=== PATIENT | female | born 1970 | race Two or more races ===

== ENCOUNTER 2018-08-16 13:05 | Inpatient (IN) | payer BC ==
[2018-08-16 13:08] VITALS: BMI 32.5
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
[2018-08-16] MEDS ORDERED: MAGNESIUM CITRATE 300 ML BOTTLE PO PRN (15:25)
[2018-08-16] MEDS ORDERED: chlordiazePOXIDE HCL 25 MG CAPSULE PO PRN (15:25)
[2018-08-16] MEDS ORDERED: IBUPROFEN 400 MG TABLET (FP) PO PRN (15:25)
[2018-08-16] MEDS ORDERED: MAGNESIUM HYDROX 2400MG/30ML ORAL SUSPENSION 30 ML CUP PO PRN (15:25)
[2018-08-16] MEDS ORDERED: hydrOXYzine PAMOATE 50 MG CAPSULE (FP) PO PRN (15:25)
[2018-08-16] MEDS ORDERED: ACETAMINOPHEN 325 MG TABLET (FP) PO PRN (15:25)
[2018-08-16] MEDS ORDERED: MAG HYDROX/AL HYDROX/SIMETH 30 ML UNIT-DOSE CUP PO PRN (15:25)
[2018-08-16] MEDS ORDERED: MENTHOL/PHENOL 1 EACH UD MM PRN (15:25)
[2018-08-16] MEDS ORDERED: guaiFENesin/D-METHORPHAN HB 10 ML UNIT-DOSE CUPS PO PRN (15:25)
[2018-08-16] MEDS ORDERED: P-EPHED 60MG/TRIPROLIDI 2.5MG TABLET PO PRN (15:25)
[2018-08-16] MEDS ORDERED: LOPERAMIDE HCL 2 MG CAPSULE PO PRN (15:25)
[2018-08-16] MEDS ORDERED: ALBUTEROL SO4 8 GM HFA INHALER IH PRN (15:30)
[2018-08-16] MEDS ORDERED: INSULIN (NOVOLOG) ASPART 100 UNITS/ML 10ML VIAL SQ SCH ×2 (17:15→22:39)
[2018-08-16] MEDS: chlordiazePOXIDE HCL 25 MG CAPSULE PO SCH ×2 (17:54→22:06)
[2018-08-16] MEDS: NICOTINE 21 MG/24 HOURS TOPICAL PATCH TD SCH (17:55)
[2018-08-16] MEDS: NICOTINE POLACRILEX 2 MG GUM BC PRN (21:28)
[2018-08-16] MEDS ORDERED: MELATONIN 5 MG TABLETS PO PRN (22:00)
[2018-08-16] MEDS ORDERED: INSULIN (LEVEMIR) 100 UNITS/ML UNITS SQ SCH (22:00)
[2018-08-16] MEDS: THIAMINE HCL 100 MG TABLET (FP) PO SCH (22:06)
[2018-08-16] MEDS: ATORVASTATIN CA 10 MG TABLET (FP) PO SCH (22:07)
[2018-08-16] MEDS: RALTEGRAVIR POTASSIUM 400 MG TAB PO SCH (22:07)
--- NOTE | 2018-08-16 22:42 | PN ---
S Progress Note Note: Patients BGM = 114 after coverage for earlier BGM of 257 w/ 15 units Novolog @ 1755. Levemir d/c until BGM patten can be evaluated. Parameters placed on standing Novolog orders.
[2018-08-17] MEDS: chlordiazePOXIDE HCL 25 MG CAPSULE PO SCH ×4 (05:10→22:20)
[2018-08-17] MEDS ORDERED: METHADONE HCL 10 MG TABLET PO SCH (06:00)
[2018-08-17] MEDS: INSULIN (NOVOLOG) ASPART 100 UNITS/ML 10ML VIAL SQ SCH ×3 (07:03→17:14)
[2018-08-17] MEDS ORDERED: INSULIN (NOVOLOG) ASPART 100 UNITS/ML 10ML VIAL ONE ×4 (07:03→17:16)
[2018-08-17] MEDS ORDERED: METHADONE HCL 10 MG TABLET PO ONE (09:36)
[2018-08-17] MEDS ORDERED: METHADONE HCL 5 MG TABLET ONE (09:59)
[2018-08-17] MEDS ORDERED: METHADONE HCL 40 MG DISPERSABLE TABLET ONE (09:59)
--- NOTE | 2018-08-17 09:59 | PN ---
S CIWA - CIWA Score Nausea/Vomitin-No Nausea/No Vomiting Muscle Tremors: 2 Anxiety: 2 Agitation: 1-Slight > Activity Paroxysmal Sweats: 3 Orientation: 0-Oriented Tacttile Disturbances: 0-None Auditory Disturbances: 0-None Visual Disturbances: 0-None Headache: 2-Mild CIWA-Ar Total Score: 10 BHS Progress Note (SOAP) Subjective: PATIENT C/O BODY ACHES, INTERRUPTED SLEEP, SWEATING, ANXIETY AND CHILLS. Objective: 08/17/18 09:58 Vital Signs Temperature 97.5 F L 08/17/18 09:24 Pulse Rate 53 L 08/17/18 09:24 Respiratory Rate 18 08/17/18 09:24 Blood Pressure 109/52 L 08/17/18 09:24 O2 Sat by Pulse Oximetry (%) Laboratory Tests 08/16/18 08/17/18 22:05 05:09 POC Glucometer 114 220 PE: ALERT AND ORIENTED X 3 SKIN WARM, +FACIAL MOISTURE EXT FULL ROM, MILD TREMORS FELT AMB AD CONSTANCE +ANXIETY Assessment: 08/17/18 09:58 WITHDRAWAL SX Plan: CONTINUE DETOX ENCOURAGE ORAL FLUIDS CONTINUE TO MONITOR LABS PENDING.
[2018-08-17] MEDS ORDERED: METHADONE HCL 10 MG TABLET ONE (10:00)
[2018-08-17] MEDS: NICOTINE 21 MG/24 HOURS TOPICAL PATCH TD SCH (10:05)
[2018-08-17] MEDS: EMTRICITABINE 200MG/TENOFOVIR 300MG PO SCH (10:09)
[2018-08-17] MEDS: PRENATAL VITAMINS W/ FOLIC ACID TABLET (FP) PO SCH (10:09)
[2018-08-17] MEDS: LISINOPRIL 10 MG TABLET (FP) PO SCH (10:09)
[2018-08-17] MEDS: RALTEGRAVIR POTASSIUM 400 MG TAB PO SCH ×2 (10:09→22:22)
[2018-08-17] MEDS: METHADONE PO SCH (10:10)
[2018-08-17 11:18] LABS: HEMATOCRIT 43.8 % (32.4-45.2); HEMOGLOBIN 14.4 GM/dL (10.7-15.3); MCH 30.5 pg (25.7-33.7); MCHC 32.8 g/dl (32.0-36.0); MEAN PLT VOLUME 10.3 fl (7.5-11.1); PLATELET COUNT 130 K/MM3 (134-434); RDW 13.6 % (11.6-15.6); WHITE BLOOD COUNT 4.1 K/mm3 (4.0-10.0)
[2018-08-17 11:24] LABS: URINE APPEARANCE CLEAR; URINE BILIRUBIN NEGATIVE (<2.0 mg/dL); URINE COLOR LTYELLOW; URINE GLUCOSE (UA) 3+ (NEGATIVE); URINE KETONE NEGATIVE (NEGATIVE); URINE LEUK ESTERASE 1+ (NEGATIVE); URINE NITRITE NEGATIVE (NEGATIVE); URINE PROTEIN NEGATIVE (NEGATIVE); URINE UROBILINOGEN NEGATIVE mg/dL (0.2-1.0)
[2018-08-17 11:29] LABS: EPI CELLS RARE /HPF (FEW); URINE MUCUS RARE
[2018-08-17 11:52] LABS: ALBUMIN 3.1 g/dl (3.4-5.0); ALK PHOS 127 U/L (45-117); ANION GAP 6 MMOL/L (8-16); BILIRUBIN,TOTAL 0.3 mg/dL (0.2-1); BLOOD UREA NITROGEN 14 mg/dL (7-18); CALCIUM 7.9 mg/dL (8.5-10.1); CHLORIDE 102 mmol/L (98-107); CHOLESTEROL 149 mg/dL (50-200); CO2 29 mmol/L (21-32); CREATININE 0.7 mg/dL (0.55-1.3); HDL CHOLESTEROL 39 mg/dL (40-60); POTASSIUM 3.9 mmol/L (3.5-5.1); SGOT/AST 27 U/L (15-37); SGPT/ALT 49 U/L (13-61); SODIUM 137 mmol/L (136-145); TOT PROT 6.1 g/dl (6.4-8.2); TRIGLYCERIDES 138 mg/dL (0-150)
[2018-08-17 13:07] LABS: GLUCOSE,RANDOM 307 mg/dL (74-106)
--- NOTE | 2018-08-17 13:29 | EKG ---
Test Reason : Blood Pressure : / mmHG Vent. Rate : 059 BPM Atrial Rate : 059 BPM P-R Int : 146 ms QRS Dur : 076 ms QT Int : 438 ms P-R-T Axes : 077 078 054 degrees QTc Int : 433 ms SINUS BRADYCARDIA OTHERWISE NORMAL ECG NO PREVIOUS ECGS AVAILABLE Confirmed by RUBIN MITTAL, YAMILETH ([id number]) on 08/17/2018 1:28:53 PM Referred By: Confirmed By:YAMILETH CONKLIN MD
[2018-08-17] MEDS: ATORVASTATIN CA 10 MG TABLET (FP) PO SCH (22:21)
[2018-08-17] MEDS: THIAMINE HCL 100 MG TABLET (FP) PO SCH (22:21)
[2018-08-18] MEDS ORDERED: METHADONE HCL 40 MG DISPERSABLE TABLET ONE (04:17)
[2018-08-18] MEDS ORDERED: METHADONE HCL 5 MG TABLET ONE (04:17)
[2018-08-18] MEDS ORDERED: METHADONE HCL 10 MG TABLET ONE (04:18)
[2018-08-18] MEDS: chlordiazePOXIDE HCL 25 MG CAPSULE PO SCH ×2 (05:10→10:17)
[2018-08-18] MEDS: METHADONE PO SCH (05:12)
[2018-08-18] MEDS ORDERED: METHADONE HCL 10 MG TABLET PO SCH (06:00)
[2018-08-18] MEDS ORDERED: INSULIN (NOVOLOG) ASPART 100 UNITS/ML 10ML VIAL ONE ×3 (06:07→17:08)
--- NOTE | 2018-08-18 10:11 | PN ---
[facility] CIWA - CIWA Score Nausea/Vomitin-No Nausea/No Vomiting Muscle Tremors: 3 Anxiety: 1-Mildly Anxious Agitation: 2 Paroxysmal Sweats: 1-Minimal Palms Moist Orientation: 0-Oriented Tacttile Disturbances: 0-None Auditory Disturbances: 0-None Visual Disturbances: 0-None Headache: 1-Very Mild CIWA-Ar Total Score: 8 S Progress Note (SOAP) Subjective: mild tremor otherwise feeling better discuss aftercare with staff Objective: 08/18/18 10:09 Vital Signs Temperature 97.7 F 08/18/18 09:25 Pulse Rate 67 08/18/18 09:25 Respiratory Rate 18 08/18/18 09:25 Blood Pressure 126/69 08/18/18 09:25 O2 Sat by Pulse Oximetry (%) Laboratory Last Values WBC 4.1 K/mm3 (4.0-10.0) 08/17/18 07:30 RBC 4.70 M/mm3 (3.60-5.2) 08/17/18 07:30 Hgb 14.4 GM/dL (10.7-15.3) 08/17/18 07:30 Hct 43.8 % (32.4-45.2) 08/17/18 07:30 MCV 93.0 fl (80-96) 08/17/18 07:30 MCH 30.5 pg (25.7-33.7) 08/17/18 07:30 MCHC 32.8 g/dl (32.0-36.0) 08/17/18 07:30 RDW 13.6 % (11.6-15.6) 08/17/18 07:30 Plt Count 130 K/MM3 (134-434) L 08/17/18 07:30 MPV 10.3 fl (7.5-11.1) 08/17/18 07:30 Sodium 137 mmol/L (136-145) 08/17/18 07:30 Potassium 3.9 mmol/L (3.5-5.1) 08/17/18 07:30 Chloride 102 mmol/L (98-107) 08/17/18 07:30 Carbon Dioxide 29 mmol/L (21-32) 08/17/18 07:30 Anion Gap 6 MMOL/L (8-16) L 08/17/18 07:30 BUN 14 mg/dL (7-18) 08/17/18 07:30 Creatinine 0.7 mg/dL (0.55-1.3) 08/17/18 07:30 Creat Clearance w eGFR > 60 (>60) 08/17/18 07:30 POC Glucometer 327 UNITS (80-120) 08/18/18 05:10 Random Glucose 307 mg/dL (74-106) H* 08/17/18 07:30 Calcium 7.9 mg/dL (8.5-10.1) L 08/17/18 07:30 Total Bilirubin 0.3 mg/dL (0.2-1) 08/17/18 07:30 AST 27 U/L (15-37) 08/17/18 07:30 ALT 49 U/L (13-61) 08/17/18 07:30 Alkaline Phosphatase 127 U/L (45-117) H 08/17/18 07:30 Total Protein 6.1 g/dl (6.4-8.2) L 08/17/18 07:30 Albumin 3.1 g/dl (3.4-5.0) L 08/17/18 07:30 Triglycerides 138 mg/dL (0-150) 08/17/18 07:30 Cholesterol 149 mg/dL (50-200) 08/17/18 07:30 Total LDL Cholesterol 90 mg/dL (5-100) 08/17/18 07:30 HDL Cholesterol 39 mg/dL (40-60) L 08/17/18 07:30 Urine Color Ltyellow 08/17/18 07:30 Urine Appearance Clear 08/17/18 07:30 Urine pH 6.0 (5.0-8.0) 08/17/18 07:30 Ur Specific [place] 1.010 (1.010-1.035) 08/17/18 07:30 Urine Protein Negative (NEGATIVE) 08/17/18 07:30 Urine Glucose (UA) 3+ (NEGATIVE) H 08/17/18 07:30 Urine Ketones Negative (NEGATIVE) 08/17/18 07:30 Urine Blood Negative (NEGATIVE) 08/17/18 07:30 Urine Nitrite Negative (NEGATIVE) 08/17/18 07:30 Urine Bilirubin Negative (<2.0 mg/dL) 08/17/18 07:30 Urine Urobilinogen Negative mg/dL (0.2-1.0) 08/17/18 07:30 Ur Leukocyte Esterase 1+ (NEGATIVE) H 08/17/18 07:30 Urine WBC (Auto) 6 /hpf (3-5) 08/17/18 07:30 Urine RBC (Auto) 1 /hpf (0-3) 08/17/18 07:30 Ur Epithelial Cells Rare /HPF (FEW) 08/17/18 07:30 Urine Mucus Rare 08/17/18 07:30 RPR Titer Nonreactive (NONREACTIVE) 08/17/18 07:30 lab noted denies burning frequency of urination Assessment: 08/18/18 10:10 withdrawal sx repeat ua Plan: continue detox increase oral fluid
[2018-08-18] MEDS: EMTRICITABINE 200MG/TENOFOVIR 300MG PO SCH (10:16)
[2018-08-18] MEDS: RALTEGRAVIR POTASSIUM 400 MG TAB PO SCH ×2 (10:16→22:16)
[2018-08-18] MEDS: PRENATAL VITAMINS W/ FOLIC ACID TABLET (FP) PO SCH (10:17)
[2018-08-18] MEDS: NICOTINE 21 MG/24 HOURS TOPICAL PATCH TD SCH (10:17)
[2018-08-18] MEDS: LISINOPRIL 10 MG TABLET (FP) PO SCH (10:17)
[2018-08-18] MEDS: INSULIN (NOVOLOG) ASPART 100 UNITS/ML 10ML VIAL SQ SCH ×3 (11:42→17:24)
[2018-08-18] MEDS: CALCIUM 250MG/VIT-D 125 UNITS 1 COMBO TABLET PO SCH ×2 (14:26→22:16)
[2018-08-18] MEDS: NICOTINE POLACRILEX 2 MG GUM BC PRN (14:44)
[2018-08-18] MEDS: chlordiazePOXIDE 5 MG CAPSULE PO SCH ×2 (17:06→22:16)
[2018-08-18] MEDS: THIAMINE HCL 100 MG TABLET (FP) PO SCH (22:15)
[2018-08-18] MEDS: ATORVASTATIN CA 10 MG TABLET (FP) PO SCH (22:16)
[2018-08-19] MEDS ORDERED: METHADONE HCL 40 MG DISPERSABLE TABLET ONE (05:11)
[2018-08-19] MEDS ORDERED: METHADONE HCL 5 MG TABLET ONE (05:11)
[2018-08-19] MEDS ORDERED: METHADONE HCL 10 MG TABLET ONE (05:12)
[2018-08-19] MEDS: chlordiazePOXIDE 5 MG CAPSULE PO SCH ×2 (05:48→10:20)
[2018-08-19] MEDS: METHADONE PO SCH (05:50)
[2018-08-19] MEDS: INSULIN (NOVOLOG) ASPART 100 UNITS/ML 10ML VIAL SQ SCH ×3 (08:12→16:54)
[2018-08-19] MEDS: EMTRICITABINE 200MG/TENOFOVIR 300MG PO SCH (10:20)
[2018-08-19] MEDS: PRENATAL VITAMINS W/ FOLIC ACID TABLET (FP) PO SCH (10:20)
[2018-08-19] MEDS: CALCIUM 250MG/VIT-D 125 UNITS 1 COMBO TABLET PO SCH ×2 (10:20→22:17)
[2018-08-19] MEDS: RALTEGRAVIR POTASSIUM 400 MG TAB PO SCH ×2 (10:20→22:17)
[2018-08-19] MEDS: LISINOPRIL 10 MG TABLET (FP) PO SCH (10:22)
[2018-08-19] MEDS: NICOTINE POLACRILEX 2 MG GUM BC PRN (10:24)
[2018-08-19] MEDS: NICOTINE 21 MG/24 HOURS TOPICAL PATCH TD SCH (10:24)
[2018-08-19] MEDS ORDERED: INSULIN (NOVOLOG) ASPART 100 UNITS/ML 10ML VIAL ONE ×2 (11:18→16:44)
[2018-08-19] MEDS: chlordiazePOXIDE HCL 10 MG CAPSULE PO SCH ×2 (17:41→22:17)
[2018-08-19] MEDS: THIAMINE HCL 100 MG TABLET (FP) PO SCH (22:17)
[2018-08-19] MEDS: ATORVASTATIN CA 10 MG TABLET (FP) PO SCH (22:17)
[2018-08-20] MEDS ORDERED: METHADONE HCL 5 MG TABLET ONE (05:22)
[2018-08-20] MEDS ORDERED: METHADONE HCL 10 MG TABLET ONE (05:23)
[2018-08-20] MEDS ORDERED: METHADONE HCL 40 MG DISPERSABLE TABLET ONE (05:23)
[2018-08-20] MEDS: METHADONE PO SCH (06:18)
[2018-08-20] MEDS: chlordiazePOXIDE HCL 10 MG CAPSULE PO SCH ×2 (06:18→10:07)
[2018-08-20] MEDS: INSULIN (NOVOLOG) ASPART 100 UNITS/ML 10ML VIAL SQ SCH ×4 (08:12→17:22)
[2018-08-20] MEDS: PRENATAL VITAMINS W/ FOLIC ACID TABLET (FP) PO SCH (10:05)
[2018-08-20] MEDS: RALTEGRAVIR POTASSIUM 400 MG TAB PO SCH ×2 (10:05→22:16)
[2018-08-20] MEDS: LISINOPRIL 10 MG TABLET (FP) PO SCH (10:05)
[2018-08-20] MEDS: EMTRICITABINE 200MG/TENOFOVIR 300MG PO SCH (10:05)
[2018-08-20] MEDS: NICOTINE 21 MG/24 HOURS TOPICAL PATCH TD SCH (10:05)
[2018-08-20] MEDS: CALCIUM 250MG/VIT-D 125 UNITS 1 COMBO TABLET PO SCH ×2 (10:05→22:16)
[2018-08-20] MEDS: NICOTINE POLACRILEX 2 MG GUM BC PRN (10:07)
--- NOTE | 2018-08-20 10:07 | PN ---
[facility] Progress Note Note: PATIENT COMPLETING DETOX TREATMENT TODAY. FOR D/C IN AM TO [facility]. PATIENT REPORTS HAVING INTERRUPTED SLEEP AND ETOH CRAVINGS. STATES " I NEED HALF-WAY TREATMENT BECAUSE IF NOT I WILL RELAPSE". Laboratory Tests 08/16/18 08/16/18 08/17/18 15:12 22:05 05:09 WBC RBC Hgb Hct MCV MCH MCHC RDW Plt Count MPV Sodium Potassium Chloride Carbon Dioxide Anion Gap BUN Creatinine Creat Clearance w eGFR POC Glucometer 257 114 220 Random Glucose Calcium Total Bilirubin AST ALT Alkaline Phosphatase Total Protein Albumin Triglycerides Cholesterol Total LDL Cholesterol HDL Cholesterol Urine Color Urine Appearance Urine pH Ur Specific [place] Urine Protein Urine Glucose (UA) Urine Ketones Urine Blood Urine Nitrite Urine Bilirubin Urine Urobilinogen Ur Leukocyte Esterase Urine WBC (Auto) Urine RBC (Auto) Ur Epithelial Cells Urine Mucus RPR Titer 08/17/18 08/17/18 08/17/18 07:30 07:30 07:30 WBC 4.1 RBC 4.70 Hgb 14.4 Hct 43.8 MCV 93.0 MCH 30.5 MCHC 32.8 RDW 13.6 Plt Count 130 L MPV 10.3 Sodium 137 Potassium 3.9 Chloride 102 Carbon Dioxide 29 Anion Gap 6 L BUN 14 Creatinine 0.7 Creat Clearance w eGFR > 60 POC Glucometer Random Glucose 307 H* Calcium 7.9 L Total Bilirubin 0.3 AST 27 ALT 49 Alkaline Phosphatase 127 H Total Protein 6.1 L Albumin 3.1 L Triglycerides 138 Cholesterol 149 Total LDL Cholesterol 90 HDL Cholesterol 39 L Urine Color Urine Appearance Urine pH Ur Specific [place] Urine Protein Urine Glucose (UA) Urine Ketones Urine Blood Urine Nitrite Urine Bilirubin Urine Urobilinogen Ur Leukocyte Esterase Urine WBC (Auto) Urine RBC (Auto) Ur Epithelial Cells Urine Mucus RPR Titer Nonreactive 08/17/18 08/17/18 08/17/18 07:30 07:30 11:31 WBC RBC Hgb Hct MCV MCH MCHC RDW Plt Count MPV Sodium Potassium Chloride Carbon Dioxide Anion Gap BUN Creatinine Creat Clearance w eGFR POC Glucometer 321 Random Glucose Calcium Total Bilirubin AST ALT Alkaline Phosphatase Total Protein Albumin Triglycerides Cancelled Cholesterol Cancelled Total LDL Cholesterol Cancelled HDL Cholesterol Cancelled Urine Color Ltyellow Urine Appearance Clear Urine pH 6.0 Ur Specific [place] 1.010 Urine Protein Negative Urine Glucose (UA) 3+ H Urine Ketones Negative Urine Blood Negative Urine Nitrite Negative Urine Bilirubin Negative Urine Urobilinogen Negative Ur Leukocyte Esterase 1+ H Urine WBC (Auto) 6 Urine RBC (Auto) 1 Ur Epithelial Cells Rare Urine Mucus Rare RPR Titer 08/17/18 08/18/18 08/18/18 16:10 05:10 11:32 WBC RBC Hgb Hct MCV MCH MCHC RDW Plt Count MPV Sodium Potassium Chloride Carbon Dioxide Anion Gap BUN Creatinine Creat Clearance w eGFR POC Glucometer 194 327 221 Random Glucose Calcium Total Bilirubin AST ALT Alkaline Phosphatase Total Protein Albumin Triglycerides Cholesterol Total LDL Cholesterol HDL Cholesterol Urine Color Urine Appearance Urine pH Ur Specific [place] Urine Protein Urine Glucose (UA) Urine Ketones Urine Blood Urine Nitrite Urine Bilirubin Urine Urobilinogen Ur Leukocyte Esterase Urine WBC (Auto) Urine RBC (Auto) Ur Epithelial Cells Urine Mucus RPR Titer 08/18/18 08/19/18 08/19/18 17:05 05:47 11:11 WBC RBC Hgb Hct MCV MCH MCHC RDW Plt Count MPV Sodium Potassium Chloride Carbon Dioxide Anion Gap BUN Creatinine Creat Clearance w eGFR POC Glucometer 180 301 320 Random Glucose Calcium Total Bilirubin AST ALT Alkaline Phosphatase Total Protein Albumin Triglycerides Cholesterol Total LDL Cholesterol HDL Cholesterol Urine Color Urine Appearance Urine pH Ur Specific [place] Urine Protein Urine Glucose (UA) Urine Ketones Urine Blood Urine Nitrite Urine Bilirubin Urine Urobilinogen Ur Leukocyte Esterase Urine WBC (Auto) Urine RBC (Auto) Ur Epithelial Cells Urine Mucus RPR Titer 08/19/18 08/20/18 16:30 06:16 WBC RBC Hgb Hct MCV MCH MCHC RDW Plt Count MPV Sodium Potassium Chloride Carbon Dioxide Anion Gap BUN Creatinine Creat Clearance w eGFR POC Glucometer 229 268 Random Glucose Calcium Total Bilirubin AST ALT Alkaline Phosphatase Total Protein Albumin Triglycerides Cholesterol Total LDL Cholesterol HDL Cholesterol Urine Color Urine Appearance Urine pH Ur Specific [place] Urine Protein Urine Glucose (UA) Urine Ketones Urine Blood Urine Nitrite Urine Bilirubin Urine Urobilinogen Ur Leukocyte Esterase Urine WBC (Auto) Urine RBC (Auto) Ur Epithelial Cells Urine Mucus RPR Titer PE: ALERT AND ORIENTED X 3 SKIN WARM AND DRY EXT FULL ROM, NO VISIBLE TREMORS AMB AD CONSTANCE ANXIOUS AND RESTLESS A/P ETOH DEPENDENCE ENCOURAGE ORAL FLUIDS CONTINUE SUPPORTIVE MEASURES MONITOR CLINICALLY
[2018-08-20] MEDS: ATORVASTATIN CA 10 MG TABLET (FP) PO SCH (22:16)
[2018-08-20] MEDS: THIAMINE HCL 100 MG TABLET (FP) PO SCH (22:16)
[2018-08-21] MEDS ORDERED: METHADONE HCL 5 MG TABLET ONE (04:06)
[2018-08-21] MEDS ORDERED: METHADONE HCL 40 MG DISPERSABLE TABLET ONE (04:06)
[2018-08-21] MEDS ORDERED: METHADONE HCL 10 MG TABLET ONE (04:07)
[2018-08-21] MEDS: METHADONE PO SCH (05:38)
[2018-08-21] MEDS ORDERED: INSULIN (NOVOLOG) ASPART 100 UNITS/ML 10ML VIAL ONE ×2 (06:52→06:55)
[2018-08-21] MEDS: INSULIN (NOVOLOG) ASPART 100 UNITS/ML 10ML VIAL SQ SCH (06:53)
[2018-08-21 09:02] VITALS: BP 131/68; PULSE 77; TEMP 97.7
[2018-08-21] MEDS: CALCIUM 250MG/VIT-D 125 UNITS 1 COMBO TABLET PO SCH (09:17)
[2018-08-21] MEDS: PRENATAL VITAMINS W/ FOLIC ACID TABLET (FP) PO SCH (09:17)
[2018-08-21] MEDS: LISINOPRIL 10 MG TABLET (FP) PO SCH (09:17)
[2018-08-21 10:24] LABS: URINE APPEARANCE SLCLOUDY; URINE BILIRUBIN NEGATIVE (<2.0 mg/dL); URINE COLOR LTYELLOW; URINE GLUCOSE (UA) 3+ (NEGATIVE); URINE KETONE NEGATIVE (NEGATIVE); URINE LEUK ESTERASE NEGATIVE (NEGATIVE); URINE NITRITE NEGATIVE (NEGATIVE); URINE PROTEIN NEGATIVE (NEGATIVE); URINE UROBILINOGEN NEGATIVE mg/dL (0.2-1.0)
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
== END 2018-08-21 09:21 | disposition home or self-care (01) | DRG 773 ==
LOC: YASAS 13:05 → Y6N 15:17
PROC: HZ2ZZZZ Detoxification Services for Substance Abuse Treatment (ICD-10-PCS; principal; 2018-08-16)
DX: F10.230 Alcohol dependence with withdrawal, uncomplicated (principal); F11.20 Opioid dependence, uncomplicated; F17.210 Nicotine dependence, cigarettes, uncomplicated; I10 Essential (primary) hypertension; E11.9 Type 2 diabetes mellitus without complications; Z21 Asymptomatic human immunodeficiency virus [HIV] infection status; J45.20 Mild intermittent asthma, uncomplicated; E78.00 Pure hypercholesterolemia, unspecified; E83.51 Hypocalcemia; Z79.4 Long term (current) use of insulin
CPT/HCPCS: 36415; 80053; 80061; 81003; 81015; 82962; 83721; 85027; 86593; 93005; 93010